=== PATIENT | female | born 1940 | race Caucasian/White ===

== ENCOUNTER → 2016-12-25 | Outpatient (CLI) | payer MEDICARE, BC | LOC: MW.CHFP 08:00 | PROVIDERS: ATTEND Emergency Medicine | DX: Z48.02 Encounter for removal of sutures (principal) | CPT/HCPCS: 99211 ==

== ENCOUNTER → 2017-01-02 | Outpatient (CLI) | payer MEDICARE, BC | LOC: MW.CHIM 08:00 | PROVIDERS: ATTEND Internal Medicine | DX: I10 Essential (primary) hypertension (principal); E78.5 Hyperlipidemia, unspecified; D30.00 Benign neoplasm of unspecified kidney | CPT/HCPCS: 99214 ==

== ENCOUNTER 2024-04-24 12:00 | Emergency (ER) | payer MEDICARE, BC | END 2024-04-24 14:28 | disposition home or self-care (01) | LOC: MW.ED 12:00 | DX: U07.1 COVID-19 (principal); Z79.899 Other long term (current) drug therapy | CPT/HCPCS: 99283 ==